=== PATIENT | male | born 1990 | race Caucasian/White ===

== ENCOUNTER 2017-05-07 12:49 | Emergency (ER) | payer SELFPAY ==
[~2017-05-07] VITALS: Ht 175.3 cm; Wt 77.0 kg
[~2017-05-07 12:49] MED LIST: IBUP600T26 PO; ROBA750T3 PO; ZOFR4TAB3 SL
--- NOTE | 2017-05-07 13:13 | PD ---
Physical Exam Time Seen by Provider: 13:12 Narrative 27-year-old male complaining of possible spider bite to left forearm for a couple days. Denies IV drug use. Denies fever, vomiting. Denies prior treatment with antibiotics. Patient seen in triage. VS reviewed. Awaiting bed placement. MDM Supervised Visit with ROYAL: Destiney Loredo May 07, 2017 13:13
[2017-05-07 13:22] VITALS: BP 120/87; PULSE 78; RESP 13; TEMP 98.7; O2SAT 99
[2017-05-07] MEDS ORDERED: CLINDAMYCIN PHOS 600 MG/4 ML VIAL IM ONE (13:30)
[2017-05-07] MEDS ORDERED: LIDOCAINE HCL 1% 20 ML VIAL INFIL ONE (13:30)
--- NOTE | 2017-05-07 13:47 | PD ---
HPI Chief Complaint: Lump, Cyst, Hernia Time Seen by Provider: 13:25 Travel History International Travel<30 days: No Contact w/Intl Traveler<30days: No Traveled to known affect area: No History of Present Illness HPI Patient comes in complaining of an abscess to his left forearm that began 2 days ago. Patient states he's been taking hot showers with no improvement of symptoms. Patient reports it is getting progressively larger. Denies any fevers with this. Denies any IV drug use. Denies any history of similar. Patient describes pain as a throbbing pressure pain over the site of the abscess without radiation. Pain is worse to palpation. Denies anything making it better. 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 HX DEPRESSION, ADHD) Seizures: No Thyroid Disease: No Ulcer: No Past Surgical History Other Surgery: No Social History Alcohol Use: No Tobacco Use: No Substance Use: No Allergies-Medications (Allergen,Severity, Reaction): Coded Allergies: haloperidol (Verified Adverse Reaction, Intermediate, MUSCLES CRAMP, ) Reported Meds & Prescriptions Reported Meds & Active Scripts Active Keflex (Cephalexin) 500 Mg Cap 500 Mg PO Q8H Bactrim DS (Sulfamethoxazole-Trimethoprim) 800-160 Mg Tab 1 Tab PO BID Robaxin-750 (Methocarbamol) 750 Mg Tab 750 Mg PO QID PRN FOR PAIN Ibuprofen 600 Mg Tab 600 Mg PO Q8HR PRN Zofran ODT (Ondansetron HCl) 4 Mg Tab 4 Mg SL Q6H PRN FOR NAUSEA/VOMITING Review of Systems Except as stated in HPI: all other systems reviewed are Neg Physical Exam Narrative GENERAL: Well-developed, well nourished, in no acute distress, and non-ill appearing. SKIN: Tender fluctuant abscess noted on left forearm. There is no significant surrounding cellulitis. There is no streaking. There is no drainage. There is no crepitus. HEAD: Atraumatic. Normocephalic. EYES: Pupils equal and round. EOMI. No scleral icterus. No injection or drainage. ENT: No nasal bleeding or discharge. Mucous membranes pink and moist. NECK: Trachea midline. Supple. No nuclear rigidity. RESPIRATORY: No accessory muscle use. No respiratory distress. MUSCULOSKELETAL: No obvious deformities. No clubbing. No cyanosis. No edema. Full range of motion. NEUROLOGICAL: Awake and alert. No obvious cranial nerve deficits. Motor grossly within normal limits. Normal speech. PSYCHIATRIC: Appropriate mood and affect; insight and judgment normal. Data Data Last Documented VS Vital Signs Date Time Temp Pulse Resp B/P (MAP) Pulse Ox O2 Delivery O2 Flow Rate FiO2 05/07/17 14:32 05/07/17 13:22 98.7 78 13 99 Orders Orders Lidocaine 1% Inj (Xylocaine 1% Inj) (05/07/17 13:30) Wound Culture And Gram Stain (05/07/17 13:27) Clindamycin Inj (Cleocin Inj) (05/07/17 13:30) [facility] Medical Decision Making Medical Screen Exam Complete: Yes Emergency Medical Condition: Yes Differential Diagnosis Abscess, cellulitis, folliculitis, gangrene, other Narrative Course The patient has no evidence of significant cellulitis. There is no evidence of necrotizing fasciitis/ Kenvir at this time. The patient will be discharged on antibiotics. The patient was given signs and symptoms warnings for worsening infection, such as spreading of redness, increasing pain, and/or swelling, associated heat, or fever or feels worse, and instructed to return immediately if these signs or symptoms worsen. The patient is to return in 2 days for recheck. Sooner if worsens or as needed. The patient agrees with plan. Patient in no obvious distress upon re-evaluation. Patient was asked if they wanted to speak to my attending, which the patient did not wish to do at this time. Any questions/concerns in reference to patient diagnosis/condition discussed and clarified prior to patient's discharge. Reinforced sheer importance of close follow up here in 2 days for recheck. Instructed patient to return to ED immediately, if symptoms return/worsen. Patient showed understanding of above instructions. Further instructions and recommendations were detailed in discharge paperwork. Patient ambulated without difficulty out of ED at discharge. Procedures Procedure Narrative INCISION AND DRAINAGE OF ABSCESS: Verbal consent was obtained. The area was prepped. A subcutaneous wheal of 1% Xylocaine with epi without a total number 2 mL was used to anesthetize the area. The area was properly anesthetized. A number 11 scalpel was used to make a 0.5-cm incision across the area of the abscess. The abscess was drained. Quarter inch iodoform packing was placed in the wound. Sterile dressing applied by nurse. Patient tolerated procedure well. Patient advised to return here in 2 days to have packing removed and wound rechecked. Patient verbalized understanding. Diagnosis Primary Impression: Abscess of left forearm Patient Instructions: Abscess (ED), Abscess Incision and Drainage (DC), General Instructions Additional Instructions: Follow-up here in 2 days for recheck. Take all medication as prescribed. Return to the emergency department if symptoms get worse. Med/Other Pt SpecificInfo: Prescription(s) given Scripts Cephalexin (Keflex) 500 Mg Cap 500 MG PO Q8H for Infection, #30 CAP 0 Refills Prov: Ashli Caldera MD 05/07/17 Sulfamethoxazole-Trimethoprim (Bactrim DS) 800-160 Mg Tab 1 TAB PO BID for Infection, #20 TAB 0 Refills Prov: Ashli Caldera MD 05/07/17 Disposition: 01 DISCHARGE HOME Condition: Stable Thanh Zapata May 07, 2017 13:47
[2017-05-07] MEDS ORDERED: BACT800T5 PO (13:48)
[2017-05-07] MEDS ORDERED: CEPH-460 PO (13:48)
== END 2017-05-07 14:37 | disposition home or self-care (01) ==
LOC: NEPK 12:49
DX: L02.414 Cutaneous abscess of left upper limb (principal); B95.4 Other streptococcus as the cause of diseases classified elsewhere
CPT/HCPCS: 10061; 87070; 96372

== ENCOUNTER 2017-06-26 18:18 | Emergency (ER) | payer SELFPAY ==
[~2017-06-26] VITALS: Ht 182.9 cm; Wt 68.0 kg
[~2017-06-26 18:18] MED LIST changes: +BACT800T5 PO; +CEPH-460 PO
[2017-06-26 18:24] VITALS: BP 149/67; PULSE 100; RESP 15; TEMP 97.6; O2SAT 100
[2017-06-26] MEDS ORDERED: DIVA250ER PO ×2 (18:32→19:45)
[2017-06-26] MEDS ORDERED: LISI-515 PO ×2 (18:32→19:45)
--- NOTE | 2017-06-26 18:41 | PD ---
HPI Chief Complaint: Chest Pain Time Seen by Provider: 18:29 Travel History International Travel<30 days: No Contact w/Intl Traveler<30days: No Traveled to known affect area: No History of Present Illness HPI 27yo M with type 1 DM, polysubstance abuse, seizure disorder noncompliant with depakene brought in by [facility] for evaluation of chest pain and sob for about 1.5 hours. Pt was being chased by police on foot and went into [place] and went out and then [facility] was called at the police station because he complained of chest pain and sob. Pt also had an episode of generalized tonic clonic seizure that lasted 1.5 minutes and ativan 2mg was given by [facility]. Pt injects cocaine/methamphetamine/dilaudid. Denies any fever, n/v, abdominal pain , focal weakness or numbness. 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 HX DEPRESSION, ADHD) Seizures: No Thyroid Disease: No Ulcer: No Past Surgical History Other Surgery: No Social History Alcohol Use: No Tobacco Use: No Substance Use: No Allergies-Medications (Allergen,Severity, Reaction): Coded Allergies: haloperidol (Verified Adverse Reaction, Intermediate, MUSCLES CRAMP, ) Reported Meds & Prescriptions Reported Meds & Active Scripts Active Lisinopril 20 Mg Tab 20 Mg PO DAILY Depakote ER (Divalproex Sodium) 250 Mg Blake 250 Mg PO DAILY Reported Depakote ER (Divalproex Sodium) 250 Mg Blake 250 Mg PO DAILY Lisinopril 20 Mg Tab 20 Mg PO DAILY Review of Systems Except as stated in HPI: all other systems reviewed are Neg Physical Exam Narrative GEN: 27yo M not in distress. HEAD: Normocephalic, atraumatic. EYE: Pupils equal and reactive. ENT: No blood from nose. NECK: No midline cervical spine ttp. CV: S1, S2. Lungs: CTA B/L, equal breath sounds. Abd: soft, NT/ND. Ext: No edema or gross deformities. Neuro: No focal neurologic deficits. Data Data Last Documented VS Vital Signs Date Time Temp Pulse Resp B/P (MAP) Pulse Ox O2 Delivery O2 Flow Rate FiO2 06/26/17 18:24 97.6 100 15 149/67 (94) 100 Orders Orders Basic Metabolic Panel (Bmp) (06/26/17 18:30) Complete Blood Count With Diff (06/26/17 18:30) Magnesium (Mg) (06/26/17 18:30) Prothrombin Time / Inr (Pt) (06/26/17 18:30) Act Partial Throm Time (Ptt) (06/26/17 18:30) Troponin I (06/26/17 18:30) Chest, Single Ap (06/26/17 18:30) Valproic Acid (Depakene) (06/26/17 18:30) Electrocardiogram (06/26/17 18:30) Divalproex Er (Depakote Er) (06/26/17 19:45) Ed Discharge Order (06/26/17 19:42) Labs Laboratory Tests Test 06/26/17 18:30 White Blood Count 7.6 TH/MM3 Red Blood Count 4.21 MIL/MM3 Hemoglobin 13.0 GM/DL Hematocrit 36.8 % Mean Corpuscular Volume 87.6 FL Mean Corpuscular Hemoglobin 30.8 PG Mean Corpuscular Hemoglobin Concent 35.2 % Red Cell Distribution Width 13.2 % Platelet Count 255 TH/MM3 Mean Platelet Volume 7.6 FL Neutrophils (%) (Auto) 68.0 % Lymphocytes (%) (Auto) 22.6 % Monocytes (%) (Auto) 7.3 % Eosinophils (%) (Auto) 1.5 % Basophils (%) (Auto) 0.6 % Neutrophils # (Auto) 5.2 TH/MM3 Lymphocytes # (Auto) 1.7 TH/MM3 Monocytes # (Auto) 0.6 TH/MM3 Eosinophils # (Auto) 0.1 TH/MM3 Basophils # (Auto) 0.0 TH/MM3 CBC Comment DIFF FINAL Differential Comment Prothrombin Time 10.9 SEC Prothromb Time International Ratio 1.0 RATIO Activated Partial Thromboplast Time 26.8 SEC Blood Urea Nitrogen 15 MG/DL Creatinine 1.10 MG/DL Random Glucose 83 MG/DL Calcium Level 8.3 MG/DL Magnesium Level 1.9 MG/DL Sodium Level 139 MEQ/L Potassium Level 4.5 MEQ/L Chloride Level 108 MEQ/L Carbon Dioxide Level 20.4 MEQ/L Anion Gap 11 MEQ/L Estimat Glomerular Filtration Rate 79 ML/MIN Troponin I LESS THAN 0.02 NG/ML Valproic Acid (Depakene) Level 4 MCG/ML [facility] Medical Decision Making Medical Screen Exam Complete: Yes Emergency Medical Condition: Yes Interpretation(s) EKG: NSR 97bpm. Normal axis. No ST segment elevation or depression. Differential Diagnosis Musculoskeletal pain vs. Pneumonia vs. ACS vs. pericarditis vs. malingering vs. seizure disorder secondary to noncompliance vs. benzodiazepine or alcohol withdrawal Narrative Course 27yo M with atypical chest pain after running away from police. Pt is under police custody. Will do labs, CXR and depakote level. Pt is not post ictal right now and following commands and answering questions. No focal neurologic deficits. Diagnosis Primary Impression: Atypical chest pain Scripts Lisinopril (Lisinopril) 20 Mg Tab 20 MG PO DAILY, #30 TAB 0 Refills Prov: Ashli Caldera MD 06/26/17 Divalproex ER (Depakote ER) 250 Mg Blake 250 MG PO DAILY for Control Seizures, #30 TAB 0 Refills Prov: Ashli Caldera MD 06/26/17 Ginger Palacio DO Jun 26, 2017 18:41
[2017-06-26 18:51] LABS: AUTOMATED NEUTROPHIL # 5.2 TH/MM3 (1.8-7.7); BASOPHIL % 0.6 % (0.0-2.0); EOSINOPHIL # 0.1 TH/MM3 (0-0.4); EOSINOPHIL % 1.5 % (0.0-4.0); HEMATOCRIT 36.8 % (39.0-51.0); HEMO FLAGS DIFF FINAL; LYMPH % 22.6 % (9.0-44.0); LYMPHOCYTE # 1.7 TH/MM3 (1.0-4.8); MEAN CELL VOLUME 87.6 FL (80.0-100.0); MEAN CORPUSCULAR HEMOGLOBIN 30.8 PG (27.0-34.0); MEAN CORPUSCULAR HGB CONC 35.2 % (32.0-36.0); MONO % 7.3 % (0.0-8.0); PLATELET COUNT 255 TH/MM3 (150-450); RED BLOOD COUNT 4.21 MIL/MM3 (4.50-5.90); RED CELL DISTRIBUTION WIDTH 13.2 % (11.6-17.2); WHITE BLOOD COUNT 7.6 TH/MM3 (4.0-11.0)
--- NOTE | 2017-06-26 18:52 | RADRPT ---
EXAM DATE/TIME: 06/26/2017 18:35 [facility] COMPARISON: No previous studies available for comparison. INDICATIONS : Chest pain. MEDICAL HISTORY : None. SURGICAL HISTORY : None. ENCOUNTER: Initial ACUITY: 1 day PAIN SCORE: 5/10 LOCATION: middle chest FINDINGS: Portable AP view of the chest demonstrates a normal-sized cardiac silhouette. No effusion, consolidat ion, or pneumothorax is visualized. The bones and soft tissues demonstrate no acute abnormality. Lung s are underinflated. CONCLUSION: Underinflated examination. No acute cardiopulmonary abnormality is identified. Fabricio Crooks MD on June 26, 2017 at 18:49 Board Certified Radiologist. This report was verified electronically.
[2017-06-26 18:59] LABS: APTT (PATIENT) 26.8 SEC (24.3-30.1); PROTHROMBIN TIME - PATIENT 10.9 SEC (9.8-11.6)
[2017-06-26 19:09] LABS: ANION GAP 11 MEQ/L (5-15); BICARBONATE 20.4 MEQ/L (21.0-32.0); BLOOD UREA NITROGEN 15 MG/DL (7-18); CHLORIDE 108 MEQ/L (98-107); GLOMERULAR FILTRATION RATE 79 ML/MIN (>89); MAGNESIUM 1.9 MG/DL (1.5-2.5); POTASSIUM 4.5 MEQ/L (3.5-5.1); SODIUM (NA) 139 MEQ/L (136-145)
--- NOTE | 2017-06-26 19:42 | PD ---
Data Data Last Documented VS Vital Signs Date Time Temp Pulse Resp B/P (MAP) Pulse Ox O2 Delivery O2 Flow Rate FiO2 06/26/17 18:24 97.6 100 15 149/67 (94) 100 Orders Orders Basic Metabolic Panel (Bmp) (06/26/17 18:30) Complete Blood Count With Diff (06/26/17 18:30) Magnesium (Mg) (06/26/17 18:30) Prothrombin Time / Inr (Pt) (06/26/17 18:30) Act Partial Throm Time (Ptt) (06/26/17 18:30) Troponin I (06/26/17 18:30) Chest, Single Ap (06/26/17 18:30) Valproic Acid (Depakene) (06/26/17 18:30) Electrocardiogram (06/26/17 18:30) Divalproex Er (Depakote Er) (06/26/17 19:45) Labs Laboratory Tests Test 06/26/17 18:30 White Blood Count 7.6 TH/MM3 Red Blood Count 4.21 MIL/MM3 Hemoglobin 13.0 GM/DL Hematocrit 36.8 % Mean Corpuscular Volume 87.6 FL Mean Corpuscular Hemoglobin 30.8 PG Mean Corpuscular Hemoglobin Concent 35.2 % Red Cell Distribution Width 13.2 % Platelet Count 255 TH/MM3 Mean Platelet Volume 7.6 FL Neutrophils (%) (Auto) 68.0 % Lymphocytes (%) (Auto) 22.6 % Monocytes (%) (Auto) 7.3 % Eosinophils (%) (Auto) 1.5 % Basophils (%) (Auto) 0.6 % Neutrophils # (Auto) 5.2 TH/MM3 Lymphocytes # (Auto) 1.7 TH/MM3 Monocytes # (Auto) 0.6 TH/MM3 Eosinophils # (Auto) 0.1 TH/MM3 Basophils # (Auto) 0.0 TH/MM3 CBC Comment DIFF FINAL Differential Comment Prothrombin Time 10.9 SEC Prothromb Time International Ratio 1.0 RATIO Activated Partial Thromboplast Time 26.8 SEC Blood Urea Nitrogen 15 MG/DL Creatinine 1.10 MG/DL Random Glucose 83 MG/DL Calcium Level 8.3 MG/DL Magnesium Level 1.9 MG/DL Sodium Level 139 MEQ/L Potassium Level 4.5 MEQ/L Chloride Level 108 MEQ/L Carbon Dioxide Level 20.4 MEQ/L Anion Gap 11 MEQ/L Estimat Glomerular Filtration Rate 79 ML/MIN Troponin I LESS THAN 0.02 NG/ML Valproic Acid (Depakene) Level 4 MCG/ML MDM Supervised Visit with ROYAL: No Interpretation(s) EKG: Normal sinus rhythm with no ST changes Depakote level: 4 Narrative Course This patient was signed out to me by Dr. Palacio. He is a 27-year-old male with a history of substance abuse problems that was running away from police when he had a seizure and some chest pain. He is supposed to be on Depakote but his level is subtherapeutic. Patient was given his dose of Depakote. Labs are all reassuring. I don't suspect this is an acute coronary syndrome or other life- threatening etiology of chest pain. I think he can be discharged safely police custody. Diagnosis Primary Impression: Seizure Patient Instructions: General Instructions Additional Instruction: If you develop severe chest pain, shortness of breath, sweating, lightheadedness , dizziness or difficulty breathing return to the emergency department immediately. Followup with your primary care physician in 2-3 days if your symptoms are not resolved. Med/Other Pt SpecificInfo: No Change to Meds Disposition: 01 DISCHARGE HOME Condition: Stable Ashli Caldera MD Jun 26, 2017 19:42
[2017-06-26] MEDS ORDERED: DIVALPROEX SODIUM E.R. 250 MG TAB PO ONE (19:45)
--- NOTE | 2017-06-27 13:16 | EKG ---
Date Performed: 06/26/2017 Time Performed: 18:30:14 PTAGE: 27 years EKG: Sinus rhythm NORMAL ECG INTERPRETATION BASED ON A DEFAULT AGE OF 40 YEARS PREVIOUS TRACING : 03/14/2011 10.32 Compared to prior tracing no significant change DOCTOR: Fernando Reeves Interpretating Date/Time 06/27/2017 13:15:51
== END 2017-06-26 20:14 | disposition home or self-care (01) ==
LOC: NEPC 18:18
DX: R56.9 Unspecified convulsions (principal); R07.89 Other chest pain; R06.02 Shortness of breath; E10.9 Type 1 diabetes mellitus without complications; F19.10 Other psychoactive substance abuse, uncomplicated; G40.909 Epilepsy, unspecified, not intractable, without status epilepticus; F90.9 Attention-deficit hyperactivity disorder, unspecified type; Z91.14 Patient's other noncompliance with medication regimen; Z79.899 Other long term (current) drug therapy
CPT/HCPCS: 71010; 80048; 80164; 83735; 84484; 85025; 85610; 85730; 93005; 99285